=== PATIENT | male | born 1970 | race Caucasian/White ===

== ENCOUNTER → 2017-02-26 | Outpatient (CLI) | payer BC ==
--- NOTE | 2017-02-26 23:03 | MR ---
EXAMINATION TYPE: MR lumbar spine wo con DATE OF EXAM: 02/26/2017 COMPARISON: NONE HISTORY: Low back pain TECHNIQUE: Multiplanar, multisequence images of the lumbar spine were acquired. Vertebra have normal alignment. There is mild narrowing of lumbar disc spaces there is decreased sign al in L5-S1 disc. There is mild posterior disc herniation at L5-S1 on the left side. There are small posterior disc bulging at L2-3 L3-4. There is developmentally small spinal canal with facet arthropat hy and mild to moderate spinal stenosis at L3-4. I see no bony destructive process. There is no fermín baltazar mass. There is no compression fracture. IMPRESSION: Spondylotic changes. Small posterior left-sided L5-S1 disc herniation. Moderate spinal stenosis at L3-4 related to developmentally small spinal canal and disc bulging and f acet arthropathy.
== END | disposition home or self-care (01) ==
LOC: RADMRIMAIN 15:48
PROVIDERS: ATTEND Physician Assistant
DX: M48.06 Spinal stenosis, lumbar region (principal); M51.27 Other intervertebral disc displacement, lumbosacral region; M47.816 Spondylosis without myelopathy or radiculopathy, lumbar region; M46.86 Other specified inflammatory spondylopathies, lumbar region
CPT/HCPCS: 72148

== ENCOUNTER → 2018-09-02 | Outpatient (CLI) | payer BC | END | disposition home or self-care (01) | LOC: RADUSWWP 11:18 | PROVIDERS: ATTEND Family Medicine | DX: M79.661 Pain in right lower leg (principal); M79.662 Pain in left lower leg; R20.9 Unspecified disturbances of skin sensation | CPT/HCPCS: 93923 ==

== ENCOUNTER → 2021-02-14 | Outpatient (CLI) | payer BC ==
--- NOTE | 2021-02-14 11:32 | CT ---
EXAMINATION TYPE: CT facial bones wo con DATE OF EXAM: 02/14/2021 COMPARISON: CT facial bones May 16, 2011. CT brain March 25, 2015 HISTORY: Atypical facial pain, localized swelling left side, dental caries, left facial numbness, and headaches. CT DLP: 686.5 mGycm. Automated Exposure Control for Dose Reduction was Utilized. TECHNIQUE: CT scan of the facial bones are performed without contrast, axial images are obtained, cor onal reformatted images are also reviewed. FINDINGS: Nasal bones are intact. Stable slight nasal septal deviation. Old fracture deformity left o rbital floor redemonstrated coronal image 25. Reference unchanged from 2011 study. Orbital floors and gunderson are otherwise intact. Globes are intact bilaterally. Intraconal fat is preserved bilaterally. Zygomatic arches are intact bilaterally. Visualized mandible is intact. There is well-defined 8 mm lytic lesion in the left mandibular symphys is axial image 15 and coronal image 12 outside field of view near root of the left canine tooth, dizz iness oval in shape and fairly well-defined with sclerotic margins favoring a nonaggressive etiology. Multiple cavitary fillings and crowns in the bilateral maxillary and mandibular teeth cause streak a rtifact limiting evaluation at this level. Temporomandibular joints are maintained bilaterally. No si gnificant fat stranding or focal fluid collection clearly identified. Anterior to the left masseter m uscle there is oval fat density 2.8 x 1.6 cm lesion axial image 36 unchanged from 2011 study consiste nt with subcutaneous lipoma. Pterygoid plates are intact. Visualized maxilla is intact. Severe lobulated mucosal thickening in the left maxillary sinus is now present. Mild mucosal thickeni ng in the ethmoid sinuses bilaterally is now present. Scattered prominent but subcentimeter lymph nod es throughout the upper neck are noted bilaterally. IMPRESSION: Suboptimal study due to streak artifact. No obvious new inflammatory change or thick wal led fluid collection/abscess. Stable 2.8 cm deep subcutaneous lipoma. New severe chronic left maxilla ry sinus disease.
== END | disposition home or self-care (01) ==
LOC: RADCTMAIN 07:47
PROVIDERS: ATTEND Family Medicine
DX: J32.0 Chronic maxillary sinusitis (principal)
CPT/HCPCS: 70486